=== PATIENT | female | born 1945 | race Caucasian/White ===

== ENCOUNTER → 2018-07-11 | Outpatient (CLI) | payer MEDICARE, OTHER ==
[~2018-07-11] MED LIST: AMIO200T4 PO; ANAS1TAB PO; APIX5TAB PO; CALC-207 PO; CARV6.2579 PO; HYDR-4011 PO; HYDR25TA6 PO; LACT1CAP28 PO; LOSA100T15 PO; MAGN400T27 PO; MTF1000T PO; NIAC250T15 PO; PANT40TA4 PO; SOLI5TAB2 PO; [UNRECOGNIZED DRUG - CODE] BOTH EYES
== END | disposition home or self-care (01) ==
LOC: LAB 09:53
PROVIDERS: ATTEND Internal Medicine Interventional Cardiology
DX: Z01.818 Encounter for other preprocedural examination (principal); R76.8 Other specified abnormal immunological findings in serum
CPT/HCPCS: 80048

== ENCOUNTER → 2018-08-03 | Outpatient (CLI) | payer MEDICARE, OTHER ==
[~2018-08-03] MED LIST changes: +IOHEXOL 350MG/ML 50 ML BTL ONE; +METOPROLOL 100 MG TAB ONE; +NITROGLYCERIN AEROSOL (4.9 GM) ONE; +SOD CHLORIDE 0.9% 100 ML ONE
== END | disposition home or self-care (01) ==
LOC: C/S 08:42
PROVIDERS: ATTEND Internal Medicine Interventional Cardiology
DX: Z01.818 Encounter for other preprocedural examination (principal); R94.39 Abnormal result of other cardiovascular function study
CPT/HCPCS: 75571; 75574; Q9967